=== PATIENT | female | born 1990 | race Caucasian/White ===

== ENCOUNTER 2024-01-01 12:42 | Emergency (ER) | payer OTHER ==
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
[2024-01-01 14:07] VITALS: TEMP 97.3; O2SAT 96
[2024-01-01 14:13] VITALS: BP 115/83
== END 2024-01-01 13:54 | disposition home or self-care (01) ==
LOC: ER 12:42
DX: Z04.1 Encounter for examination and observation following transport accident (principal); V49.49XA Driver injured in collision with other motor vehicles in traffic accident, initial encounter
CPT/HCPCS: 99283